=== PATIENT | female | born 1960 | race Caucasian/White ===

== ENCOUNTER 2017-02-07 06:52 | Day surgery (SDC) | payer MEDICARE, SELFPAY ==
[~2017-02-07 06:52] MED LIST: Lactated Ringers 1,000 ML IV SCH; Lidocaine 1%/Sod Bicarbonate in NS 8.4% 1 ML Syringe PRN; Sodium Chloride 0.9% 10 ML Syringe FLUSH PRN
--- NOTE | 2017-02-07 07:44 | PCM.PREANE ---
Preanesthetic Assessment - Procedure Proposed Procedure: EGD & Colonoscopy - Anesthesia/Transfusion/Family Hx Anesthesia History: Prior Anesthesia Without Reaction Family History of Anesthesia Reaction: No Transfusion History: No Prior Transfusion(s) Intubation History: Unknown (possible with her neck fusion ) - Review of Systems General: No Symptoms Pulmonary: No Symptoms (KAMILAH ) Cardiovascular: No Symptoms Gastrointestinal: Other (rectal bleeding, GERD ) Neurological: No Symptoms (back pain treated with narcotic ) Other: Reports: None - Physical Assessment NPO Status Date: 02/06/17 NPO Status Time: 23:45 O2 Sat by Pulse Oximetry: 98 Respiratory Rate: 16 Vital Signs: Last Vital Signs Temp 36.4 C 02/07/17 07:10 Pulse 58 L 02/07/17 07:10 Resp 16 02/07/17 07:10 BP 138/71 02/07/17 07:10 Pulse Ox 98 02/07/17 07:10 Height: 1.57 m Weight: 88.904 kg ASA Class: 3 Mental Status: Alert & Oriented x3 Dentition: Reports: Normal Dentition Thyro-Mental Finger Breadths: 3 Mouth Opening Finger Breadths: 4 ROM/Head Extension: Limited/Partial (cervical fusion) Lungs: Clear to auscultation, Normal respiratory effort Cardiovascular: Regular Rate, Regular Rhythm - Allergies Allergies/Adverse Reactions: Allergies Allergy/AdvReac Type Severity Reaction Status Date / Time tramadol Allergy Unknown unkown Verified 02/04/17 14:58 orphenadrine Allergy Cannot Verified 02/04/17 14:58 Remember gabapentin AdvReac Intermediate Other Verified 02/04/17 14:58 baclofen AdvReac Muscle Verified 02/04/17 14:58 Weakness sulfa Allergy Cannot Uncoded 02/04/17 14:58 Remember - Blood Blood Available: No - Anesthesia Plan Beta Shanice: Atenolol Med Last Dose Date: 02/07/17 Med Last Dose Time: 05:30 - Acknowledgements Anesthesia Type Planned: MAC Pt an Appropriate Candidate for the Planned Anesthesia: Yes Alternatives and Risks of Anesthesia Discussed w Pt/Guardian: Yes Pt/Guardian Understands and Agrees with Anesthesia Plan: Yes PreAnesthesia Questionnaire HEENT History: Reports: Other (See Below) Other HEENT History: dysphagia Cardiovascular History: Reports: None Respiratory History: Reports: Sleep Apnea Gastrointestinal History: Reports: Chronic Constipation Genitourinary History: Reports: Other (See Below) Other Genitourinary History: kidney complications CLINICAL REHABILITATION LIAISON History: Reports: None Musculoskeletal History: Reports: Other (See Below) Other Musculoskeletal History: chronic back pain Psychiatric History: Reports: None Endocrine/Metabolic History: Reports: None Hematologic History: Reports: None Immunologic History: Reports: None Oncologic (Cancer) History: Reports: None Dermatologic History: Reports: None - Past Surgical History Head Surgeries/Procedures: Reports: None HEENT Surgical History: Reports: Tonsillectomy Cardiovascular Surgical History: Reports: None GI Surgical History: Reports: Appendectomy, Cholecystectomy, Colonoscopy Female Surgical History: Reports: Hysterectomy Neurological Surgical History: Reports: Spinal Fusion Musculoskeletal Surgical History: Reports: Arthroscopic Knee - SUBSTANCE USE Smoking Status *Q: Former Smoker (quit july 2016) Days Per Week of Alcohol Use: 0 Recreational Drug Use History: No - HOME MEDS Home Medications: Home Meds Diazepam [Valium] 5 mg PO TID PRN 04/06/14 [History] FLUoxetine [PROzac] 80 mg PO BID 04/06/14 [History] oxyCODONE 10 mg PO Q6H PRN 04/06/14 [History] Atenolol [Atenolol] 25 mg PO BID 02/04/17 [History] Morphine [MS Contin] 30 mg PO BID 02/04/17 [History] Multivitamin [Multivitamins] 1 tab PO DAILY 02/04/17 [History] Naloxegol Oxalate [Movantik] 25 mg PO DAILY 02/04/17 [History] Omeprazole [Omeprazole] 20 mg PO DAILY 02/04/17 [History] - CURRENT (IN HOUSE) MEDS Current Meds: Current Medications Lactated Ringer's (Ringers, Lactated) 1,000 mls @ 125 mls/hr IV ASDIRECTED DARWIN Stop: 02/07/17 23:00 Last Admin: 02/07/17 07:25 Dose: 125 mls/hr Lidocaine/Sodium Bicarbonate (Buffered Lidocaine 1% In Ns 8.4%) 0.25 ml .XX ONETIME PRN PRN Reason: Prior to IV Start Stop: 02/07/17 18:00 Last Admin: 02/07/17 07:25 Dose: 0.25 ml Sodium Chloride (Saline Flush) 10 ml FLUSH ASDIRECTED PRN PRN Reason: Keep Vein Open Stop: 02/07/17 18:00
[2017-02-07] MEDS ORDERED: Propofol 200 MG/20 ML SDV ONE ×2 (08:17→09:05)
[2017-02-07] MEDS ORDERED: Lidocaine 1% 2 ML ONE ×2 (08:17)
[2017-02-07] MEDS ORDERED: Labetalol 100 MG/20 ML MDV ONE (08:50)
[2017-02-07] MEDS ORDERED: fentaNYL 100 MCG/2 ML SDV ONE (08:54)
--- NOTE | 2017-02-07 09:11 | PCM.OPNOTE ---
- General Post-Op/Procedure Note Date of Surgery/Procedure: 02/07/17 Operative Procedure(s): egc with bx and colonoscopy with polypectomy to cecum Pre Op Diagnosis: GERD/rectal bleeding Post-Op Diagnosis: Same Anesthesia Technique: MAC Primary Surgeon: Shelton Elizalde EBL in mLs: 0 Complications: None Condition: Good
[2017-02-07 09:20] VITALS: BP 169/80
--- NOTE | 2017-02-07 09:20 | PCM48HPAN ---
Post Anesthesia Note - EVALUATION WITHIN 48HRS OF ANESTHETIC Vital Signs in Normal Range: Yes Patient Participated in Evaluation: Yes Respiratory Function Stable: Yes Airway Patent: Yes Cardiovascular Function Stable: Yes Hydration Status Stable: Yes Pain Control Satisfactory: Yes Nausea and Vomiting Control Satisfactory: Yes Mental Status Recovered: Yes
--- NOTE | 2017-02-07 14:05 | OR ---
DATE OF OPERATION: 02/07/2017 SURGEON: Shelton Elizalde MD PREOPERATIVE DIAGNOSIS: Gastroesophageal reflux disease. POSTOPERATIVE DIAGNOSIS: Gastroesophageal reflux disease. OPERATION PERFORMED: EGD with biopsy. FINDINGS: Some petechiae in the antrum, which was biopsied. Presence of telangiectasia suggesting chronic esophagitis at the GE junction, which was biopsied. The stomach in general showed just some chronic gastritis. There was no acute process going on. Second portion of the duodenum, duodenal bulb, pyloric channel, body, cardia, and fundus of the stomach, and cardia were unremarkable. GE junction was located at 40 cm. The hiatus was intact. The rest of the esophagus did not show any pathology. ANESTHESIA: Done under IV sedation. DESCRIPTION OF PROCEDURE: The patient was taken to the operating room, placed in a supine position, connected to monitoring equipment, given IV sedation, and placed in the left lateral position. Bite block was inserted and video Olympus gastroscope was then placed in the posterior oropharynx and, under direct vision, threaded past the cricopharyngeus, down the esophagus, and into the stomach. The stomach was insufflated, and the scope was passed through the pylorus to the second portion of the duodenum. The scope was withdrawn slowly showing normal second portion of the duodenum, duodenal bulb, and pyloric channel. Antrum showed little petechiae, and there was some general flattening of the mucosa throughout the stomach suggesting chronic gastritis. Biopsies of the antrum was performed. Body, cardia, and fundus of the stomach and cardia were reviewed. J-maneuver showed an intact hiatus. Scope was withdrawn to the GE junction, which was located at 40 cm, showed some chronic esophagitis, but nothing acute, and this was biopsied. Rest of the esophagus was viewed as the scope withdrawn and was normal. The patient tolerated the procedure. Specimen sent to pathology in a labeled container. The patient's IV sedation will be continued for colonoscopy. ESTIMATED BLOOD LOSS: MMODAL /[id number]
--- NOTE | 2017-02-07 14:09 | OR ---
DATE OF OPERATION: 02/07/2017 SURGEON: Shelton Elizalde MD PREOPERATIVE DIAGNOSIS: Rectal bleeding. POSTOPERATIVE DIAGNOSIS: Rectal bleeding. OPERATION PERFORMED: Colonoscopy to cecum with removal of a diminutive polyp by cold biopsy forceps in the cecum. FINDINGS: There are no angiodysplasias, large tumor masses, ulcerations, diverticulum, or hemorrhoids. DESCRIPTION OF PROCEDURE: The patient was taken to the operating room, placed in a supine position, having been connected to monitoring equipment, and IV sedation given. Upper GI endoscopy completed and colonoscopy was begun. She was placed in left lateral position. The perianal area was inspected and was normal. Rectal exam showed good sphincter tone. A video Olympus colonoscope was then introduced into the rectum and threaded up without problem to the cecum, where the appendicular orifice and ileocecal valve were noted. Diminutive polyp was noted in the fold in the cecum, and this was removed by cold biopsy forceps. Multiple bites were performed. Prep was excellent. [place] [employer] score was grade A throughout the colon. Scope was slowly withdrawn showing the cecum, ascending colon, transverse colon, descending colon, sigmoid colon, and rectum. Retroflexed view was done. The patient tolerated the procedure and was sent to recovery room in a stable condition. She will be followed up with Tiff Balderrama NP. ANESTHESIA: ESTIMATED BLOOD LOSS: MMODAL /[id number]
== END 2017-02-07 10:05 | disposition home or self-care (01) ==
LOC: JD.SDS 06:52
PROVIDERS: ATTEND Surgery
PROC: 0DBH8ZZ Excision of Cecum, Via Natural or Artificial Opening Endoscopic (ICD-10-PCS; principal; 2017-02-07)
PROC: 0DB68ZZ Excision of Stomach, Via Natural or Artificial Opening Endoscopic (ICD-10-PCS; 2017-02-07)
DX: K63.5 Polyp of colon (principal); K29.50 Unspecified chronic gastritis without bleeding; K21.9 Gastro-esophageal reflux disease without esophagitis; K59.09 Other constipation; G47.30 Sleep apnea, unspecified; Z90.49 Acquired absence of other specified parts of digestive tract; Z90.710 Acquired absence of both cervix and uterus; Z90.89 Acquired absence of other organs; Z98.1 Arthrodesis status; Z98.890 Other specified postprocedural states; Z79.899 Other long term (current) drug therapy; Z88.2 Allergy status to sulfonamides; Z88.5 Allergy status to narcotic agent; Z88.8 Allergy status to other drugs, medicaments and biological substances; Z87.891 Personal history of nicotine dependence
CPT/HCPCS: 43239; 45380; 88305; J3010; J7120; 00810; J2704